=== PATIENT | male | born 2000 | race African-American/Black ===

== ENCOUNTER 2019-06-15 16:06 | Emergency (ER) | payer MEDICAID, OTHER ==
[~2019-06-15] VITALS: Ht 198.1 cm; Wt 172.0 kg
[2019-06-15] MEDS ORDERED: HYDROCODONE/ACETAMINOPHEN 5/325MG TABLET PO ONE (18:15)
[2019-06-15] MEDS ORDERED: BACITRACIN ZINC OINT UDPKT TOP ONE (18:15)
[2019-06-15] MEDS ORDERED: KETOROLAC 60MG/2ML VIAL IM ONE (18:15)
[2019-06-15] MEDS ORDERED: LIDOCAINE HCL/PF 1% 10 MG/ML 5ML VIAL IJ ONE (18:15)
[2019-06-15] MEDS ORDERED: CLINDAMYCIN HCL 150MG CAPSULE PO ONE (19:45)
[2019-06-15 20:07] VITALS: BP 125/85
== END 2019-06-15 20:13 | disposition home or self-care (01) ==
LOC: ER 16:06
DX: L02.31 Cutaneous abscess of buttock (principal); L03.317 Cellulitis of buttock; L53.9 Erythematous condition, unspecified
CPT/HCPCS: 10060; 96372; 99283; J1885; J3490; Z7610

== ENCOUNTER 2023-06-27 18:25 | Emergency (ER) | payer MEDICAID, OTHER ==
[~2023-06-27] VITALS: Ht 198.1 cm; Wt 165.0 kg
[2023-06-27 18:51] VITALS: BP 136/97; PULSE 107; RESP 16; TEMP 98.9; O2SAT 100
[2023-06-28] MEDS ORDERED: KETOROLAC 30MG/ML VIAL IM ONE
[2023-06-28] MEDS ORDERED: DEXAMETHASONE 4MG/ML 1ML VIAL IM ONE
[2023-06-28] MEDS ORDERED: AMOXICILLIN/POTASSIUM CLAVULANATE 875/125MG TAB PO ONE
[2023-06-28] MEDS ORDERED: AMOX1TAB16 MT (01:37)
[2023-06-28] MEDS ORDERED: IBUP-2029 MT (01:37)
[2023-06-28] MEDS ORDERED: DEXAMETHASONE 4MG/ML 1ML VIAL IM NR (02:00)
[2023-06-28] MEDS ORDERED: KETOROLAC 30MG/ML VIAL IM NR (02:00)
[2023-06-28] MEDS ORDERED: AMOXICILLIN/POTASSIUM CLAVULANATE 875/125MG TAB PO NR (02:00)
== END 2023-06-28 02:27 | disposition home or self-care (01) ==
LOC: ER 18:25
DX: J03.90 Acute tonsillitis, unspecified (principal)
CPT/HCPCS: 99284; 96372; J1100; J1885; Z7610